=== PATIENT | female | born 1960 | race Caucasian/White ===

== ENCOUNTER 2019-04-17 15:00 | Outpatient (RCR) | payer BC ==
[2013-02-20 09:00] VITALS: BP 151/84
[~2019-04-17 15:00] MED LIST: LUTEIN20 M1 PO; METOPROLOL SUCC25 M1 PO; MULTIVITAMIN FO1 CAP PO; XALATAN EYE DROPS OU
== END 2019-04-17 15:30 | disposition still patient (30) ==
LOC: PT 15:00
DX: M75.51 Bursitis of right shoulder (principal)

== ENCOUNTER → 2019-10-08 | Outpatient (CLI) | payer BC ==
[2013-02-20 09:00] VITALS: BP 151/84
== END ==
LOC: RAD 07:28
DX: K76.0 Fatty (change of) liver, not elsewhere classified (principal)

== ENCOUNTER → 2019-11-04 | Outpatient (CLI) | payer BC ==
[2013-02-20 09:00] VITALS: BP 151/84
== END ==
LOC: MAMMO 11:30
DX: Z12.31 Encounter for screening mammogram for malignant neoplasm of breast (principal)

== ENCOUNTER → 2020-05-19 09:00 | Outpatient (RCR) | payer BC ==
[2013-02-20 09:00] VITALS: BP 151/84
== END | disposition still patient (30) ==
LOC: PT 05-02 15:30
DX: M54.5 Low back pain (principal); G89.29 Other chronic pain

== ENCOUNTER → 2022-01-04 | Outpatient (CLI) | payer BC | LOC: MAMMO 08:21 | DX: Z12.31 Encounter for screening mammogram for malignant neoplasm of breast (principal); Z13.820 Encounter for screening for osteoporosis; M85.80 Other specified disorders of bone density and structure, unspecified site; K76.0 Fatty (change of) liver, not elsewhere classified; R79.89 Other specified abnormal findings of blood chemistry; Z78.0 Asymptomatic menopausal state ==

== ENCOUNTER → 2022-01-11 | Outpatient (CLI) | payer BC | LOC: MAMMO 12:15 | DX: R92.0 Mammographic microcalcification found on diagnostic imaging of breast (principal) ==

== ENCOUNTER → 2024-03-23 | Day surgery (SDC) | payer OTHER ==
[~2024-03-23] MED LIST changes: +Lidocaine PF 2% (20 MG/ML) 2 ML VIAL ONE
== END | disposition home or self-care (01) ==
LOC: MSO 08:05
DX: Z12.11 Encounter for screening for malignant neoplasm of colon (principal); D12.3 Benign neoplasm of transverse colon
CPT/HCPCS: 00812; J7120

== ENCOUNTER → 2024-03-26 | Outpatient (CLI) | payer OTHER ==
[~2024-03-26] MED LIST changes: -Lidocaine PF 2% (20 MG/ML) 2 ML VIAL ONE
== END ==
LOC: MAMMO 15:30
DX: Z12.31 Encounter for screening mammogram for malignant neoplasm of breast (principal); M85.80 Other specified disorders of bone density and structure, unspecified site

== ENCOUNTER → 2024-05-12 | Outpatient (CLI) | payer OTHER | LOC: RAD 15:52 | DX: M19.072 Primary osteoarthritis, left ankle and foot (principal); S92.911A Unspecified fracture of right toe(s), initial encounter for closed fracture; X58.XXXA Exposure to other specified factors, initial encounter ==